=== PATIENT | female | born 1955 | race Two or more races ===

== ENCOUNTER 2025-02-11 10:19 | Inpatient (IN) | payer MEDICARE, OTHER ==
[~2025-02-11] VITALS: Ht 162.6 cm; Wt 77.1 kg
--- NOTE | 2025-02-11 10:39 | ECG ---
[facility] Test Date: 2025-02-11 Test Time: 10:38:05 Pat Name: REMA MOORE Department: ER Room: Gender: F Car Body Mechanic: ALEX : 1955 Requested By: CHANDRA BLANKENSHIP Order Number: [id number] Reading MD: Measurements Intervals [place] Rate: 87 P: 63 NE: 143 QRS: -63 QRSD: 84 T: 67 QT: 361 QTc: 435 Interpretive Statements Sinus rhythm Left anterior fascicular block Consider anterior infarct Please click the below link to view image of tracing.
[2025-02-11] MEDS: ASPirin-EC 325mg tab PO ONE (10:49)
[2025-02-11] MEDS: NITROGLYCERIN 0.4 MG SL TAB SL ONE (10:50)
[2025-02-11 10:52] VITALS: PULSE 88; RESP 20; O2SAT 99
--- NOTE | 2025-02-11 10:53 | ED.PDOC ---
HPI Comments HPI: Poor Historian. 69-year-old female presents to emergency department for evaluation of midsternal chest pain radiating to the left upper extremity. Symptoms are intermittent without any particular alleviating or precipitating factors. Duration of symptoms has been for the last three weeks. Patient is started developing some shortness of breath in the last three days and became concerned decided to come in for evaluation. Patient is otherwise healthy. Past Medical History: Remote hypertension Past Surgical History: , tubal ligation Past social history patient denies any use of drugs or alcohol or tobacco. REVIEW OF SYSTEMS: CONSTITUTIONAL: Denies acute: fever, diaphoresis, chills, generalized weakness. HEAD: Denies acute: headache, photophobia Eyes: Denies acute: Double vision, vision loss, eye pain, eye discharge. EARS: Denies acute: tinnitus, hearing loss, ear discharge, ear pain, THROAT: Denies acute: sore throat, swelling, difficulty swallowing , pain with swallowing, change in voice. NECK: Denies acute: neck pain, neck swelling, stiff neck. HEART: Denies acute : palpitations, LUNGS: Denies acute: wheezing, cough, hemoptysis ABDOMEN: Denies acute: abdominal pain, Nausea, Vomiting, diarrhea, melena , hematemesis, hematochezia SKIN: Denies acute: rash, redness, lesions, itchiness. EXTREMITIES: Denies acute: calf pain, weakness, denies pain in extremity. Denies acute: Low back pain. Neuro: Denies acute: focal neurological deficit, motor or sensory focal neurological deficit, tremors, seizure like activity, confusion, dizziness, change in mental status, loss of bowel or bladder function, cauda equina like symptoms. : Denies acute: dysuria, hematuria, flank pain, increase in urinary frequency. PSYCH: Denies acute: hallucination, suicidal ideation, homicidal ideation. FEMALE: Denies acute: abnormal vaginal bleeding, foul odor, unusual discharge. PHYSICAL EXAM: General: ---bile-----acute distress, awake and alert. Head: normocephalic, atraumatic. Neck: supple, trachea is midline, no swelling. Throat: Normal phonation. Eyes:, no erythema, no purulent discharge, no proptosis, no icterus. Heart: regular rate, regular rhythm, no significant murmur appreciated. Lungs: no apparent respiratory distress, Able to speak in full sentences. No wheezing, no rhonchi, no crackles. No stridors Clear to auscultation bilaterally. Abdomen: non tender to palpation, non distended, soft, no guarding, no rebound, + bowel sounds. Neuro: Awake, Alert, oriented to name, self, situation, follows commands GCS=15. Speech is normal. Skin: no petechia, no purpura, no cyanosis, non-pale, not jaundice. Lower extremities: --no - Pitting edema no deformity, no focal swelling, no calf TTP. Makes eye contact. moves all four extremities. Face: no apparent facial droop. Ambulating in the ED independently. ED COURSE: DISCLAIMER: This medical document was created using an electronic medical record system with voice recognition software and computerized dictation system. Although this document has been carefully reviewed, there might still be some phonetic and typographical errors. Occasional wrong-word or "sound-alike" substitutions may have occurred due to the inherent limitations of voice recognition software. These areas are purely typographical due to imperfections of the software programs and do not reflect any compromise in the patient's medical care. Please read the chart carefully and recognize, using context, where these substitutions have occurred. Chief Complaint: Chest Pain Time Seen by MD: 10:29 Allergies: Coded Allergies: Codeine (Verified Allergy, Mild, 02/11/25) itching Information Source: Patient Was a procedure done? Was a procedure done?: No CP Differential Dx Differential Diagnosis: Other (As far as dyspnea, DDx include ACS, unstable angina, anxiety, PE, pneumothroax, neoplasm, cardiac ischemia, COPD, asthma, CHF, pleural effusion, tobacco abuse, pneumonia, hypoxia, hypercapnia, anemia., infection/sepsis., pulmonary edema. Asthma, Cardiac tamponade, infection.) Differential Diagnosis: Other (Ddx include but not limitied to gastritis, musculoskeletal pain, radiculopathy, atypical chest pain, dissection, aneurysm, ACS, unstable angina, hiatal hernia, GERD, anxiety, costochondritis, PE, pneumothroax, neoplasm, cardiac ischemia, drug abuse, anemia.) X-Ray, Labs, Meds, VS Vital Signs Date Time Temp Pulse Resp B/P (MAP) Pulse Ox O2 Delivery O2 Flow Rate FiO2 02/11/25 12:26 107 18 171/93 (119) 96 02/11/25 12:26 107 171/93 02/11/25 11:42 153/98 02/11/25 11:30 100 02/11/25 10:52 97.8 88 20 147/93 (111) 99 97.8 02/11/25 10:52 88 20 99 Room Air* 0 21 02/11/25 10:50 147/93 02/11/25 10:38 87 02/11/25 10:30 98.6 101 14 161/99 (119) 97 98.6 02/11/25 10:30 98.6 101 14 161/99 (119) 97 98.6 Lab Test 02/11/25 12:43 02/11/25 10:42 02/11/25 10:30 Range/Units Hemoglobin A1c Pending Troponin I High Sensitivity Pending < 3 L </=34 ng/L Thyroid Stimulating Hormone (TSH) Pending White Blood Count 5.5 4.4-10.8 10^3/uL Red Blood Count 5.08 4.0-5.20 10^6/uL Hemoglobin 14.6 12.2-16.2 g/dL Hematocrit 43.0 36.0-46.0 % Mean Corpuscular Volume 84.5 80.0-100.0 fL Mean Corpuscular Hemoglobin 28.8 28.0-32.0 pg Mean Corpuscular Hemoglobin Concent 34.0 32.0-36.0 g/dL Red Cell Distribution Width 14.4 H 11.8-14.3 % Platelet Count 344 140-450 10^3/uL Mean Platelet Volume 6.8 L 6.9-10.8 fL Neutrophils (%) (Auto) 56.6 37.0-80.0 % Lymphocytes (%) (Auto) 33.2 10.0-50.0 % Monocytes (%) (Auto) 7.1 0.0-12.0 % Eosinophils (%) (Auto) 1.8 0.0-7.0 % Basophils (%) (Auto) 1.3 0.0-2.0 % Neutrophils # (Auto) 3.1 1.6-8.6 10 ^3/uL Lymphocytes # (Auto) 1.8 0.4-5.4 10 ^3/uL Monocytes # (Auto) 0.4 0-1.3 10 ^3/uL Eosinophils # (Auto) 0.1 0-0.8 10 ^3/uL Basophils # (Auto) 0.1 0-0.2 10 ^3/uL Nucleated Red Blood Cells 0.1 % D-Dimer, Quantitative 0.32 0.0-0.49 mg/L FEU Sodium Level 140 136-145 mmol/L Potassium Level 3.8 3.5-5.1 mmol/L Chloride Level 108 H 98-107 mmol/L Carbon Dioxide Level 22 20-31 mmol/L Anion Gap 10 5-15 Blood Urea Nitrogen 15 9-23 mg/dL Creatinine 0.84 0.550-1.02 mg/dL Glomerular Filtration Rate Calc 75 >90 mL/min BUN/Creatinine Ratio 17.9 10.0-20.0 Serum Glucose 107 H 74-106 mg/dL Calcium Level 10.2 8.7-10.4 mg/dL Total Bilirubin 0.3 0.2-1.0 mg/dL Aspartate Amino Transferase (AST) 12 L 13-40 U/L Alanine Aminotransferase (ALT) 11 7-40 U/L Alkaline Phosphatase 70 46-116 U/L B-Type Natriuretic Peptide 10.91 0-100 pg/mL Total Protein 7.2 5.7-8.2 g/dL Albumin 4.8 3.2-4.8 g/dL Urine Color Yellow Yellow Urine Clarity Clear Clear Urine pH 5.5 5.0-9.0 Urine Specific [place] 1.031 1.001-1.035 Urine Protein Trace H Negative Urine Ketones Negative Negative Urine Blood Negative Negative /uL Urine Nitrite Negative Negative Urine Bilirubin Negative Negative Urine Urobilinogen Normal Negative mg/dL Urine Leukocyte Esterase 1+ Negative /uL Urine RBC 2 0 - 4 /hpf Urine Microscopic WBC 4 0-5 /HPF Urine Squamous Epithelial Cells Few <5 /hpf Urine Transitional Epithelial Cells Few <2 /hpf Urine Bacteria None seen None Seen /hpf Urine Hyaline Casts Few 0 - 2 /lpf Urine Mucus Few None Seen Urine Glucose Normal Normal mg/dL Current Medications Medications (Trade) Dose Ordered Sig/Jorge Route Start Time Stop Time Status Last Admin Aspirin (Ecotrin Enteric Coated Tablet) 325 mg ONCE ONCE PO 02/11/25 10:30 02/11/25 10:33 DC 02/11/25 10:49 Nitroglycerin (Ntrostat Sublingual) 0.4 mg ONCE ONCE SL 02/11/25 10:30 02/11/25 10:33 DC 02/11/25 10:50 Labetalol HCl (Labetalol HCl) 5 mg ONCE ONCE IV 02/11/25 12:00 02/11/25 12:01 DC 02/11/25 12:26 [place] [id number] Ph: [phone] DIAGNOSTIC IMAGING Diagnostic Imaging Report : [id number] Signed PATIENT: REMA MOORE ACCT: [id number] UNIT: [id number] : 1955 LOC: ER ROOM / BED: / AGE / SEX: 69 / F ADM STATUS: REG ER SERVICE 1030 ORDERING PHYSICIAN: CHANDRA BLANKENSHIP DO PROCEDURE(s): CXRP - CHEST PORTABLE REASON: cp, sob ORDER NUMBER(s): [id number], ACCESSION NUMBER(s): [id number] CHEST RADIOGRAPH Indication: cp, sob Technique: XY CHEST PORTABLE Comparison: None FINDINGS: The cardiac silhouette is unremarkable. The lungs demonstrate no pulmonary airspace consolidation. The pulmonary vasculature is unremarkable. There is no pleural effusion. There is no pneumothorax. Aortic atherosclerotic disease. IMPRESSION: No pulmonary airspace consolidation. ATED BY: JOHAN RODRIGUEZ MD DICTATED DATE/TIME: 02/11/25 1124 SIGNED BY: JOHAN RODRIGUEZ MD SIGNED DATE/TIME: 02/11/25 1124 CC: Time of 1ST Reevaluation: 13:01 Reevaluation 1ST: Improved Patient Education/Counseling: Diagnosis, Treatment Family Education/Counseling: Other Comments MDM: patient presented with the above HPI.----chest pain/dyspnea--workup was initiated. patient was found with the above mentioned diagnosis. the following medications were ordered: please refer to order lists of meds and tests obtained by myself Dr. Blankenship. Patient ED course and VS have been stabilized. Patient has been reassessed in the ED and remained in a stable condition. Pertinent incidental findings were discussed with the patient and/or family. Patient/family voices understanding and is agreeable with plan. Patient has been observed in the ED adequate length of time to insure improvement/stability. Escalation of care considered: Consideration of escalation to observation or admission Patient was given aspirin, nitroglycerin, labetalol for blood pressure control. Patient was ADMITTED to the medicine team for further evaluation and treatment of their presentation. All the reports of any imaging studies that were ordered by myself were reviewed by myself. SEPSIS Sepsis Screen Physician Orders Healthcare Recruiter (02/11/25 ) Chest Portable (02/11/25 10:30) Troponin-I Hs (02/11/25 11:30) Troponin-I Hs (02/11/25 13:30) Electrocardigram (02/11/25 11:30) Electrocardigram (02/11/25 13:30) Saline Lock (02/11/25 12:21) Vital Signs Date Time Temp Pulse Resp B/P (MAP) Pulse Ox O2 Delivery O2 Flow Rate FiO2 02/11/25 12:26 107 18 171/93 (119) 96 02/11/25 12:26 107 171/93 02/11/25 11:42 153/98 02/11/25 11:30 100 02/11/25 10:52 97.8 88 20 147/93 (111) 99 97.8 02/11/25 10:52 88 20 99 Room Air* 0 21 02/11/25 10:50 147/93 02/11/25 10:38 87 02/11/25 10:30 98.6 101 14 161/99 (119) 97 98.6 02/11/25 10:30 98.6 101 14 161/99 (119) 97 98.6 Laboratory Tests Test 02/11/25 10:42 White Blood Count 5.5 10^3/uL (4.4-10.8) Medications Medications Dose Ordered Sig/Jorge Route Start Time Stop Time Status Last Admin Dose Admin Aspirin 325 mg ONCE ONCE PO 02/11/25 10:30 02/11/25 10:33 DC 02/11/25 10:49 Labetalol HCl 5 mg ONCE ONCE IV 02/11/25 12:00 02/11/25 12:01 DC 02/11/25 12:26 Nitroglycerin 0.4 mg ONCE ONCE SL 02/11/25 10:30 02/11/25 10:33 DC 02/11/25 10:50 Departure 1 Departure Time of Disposition: 10:53 Impression: Primary Impression: Chest pain Qualified Codes: R07.89 - Other chest pain Additional Impressions: Dyspnea Hypertension Disposition: 09 ADMITTED INPATIENT Admit to: Tele Condition: Guarded Discharged With: Self Critical Care Note Critical Care Time?: No Heart Score Heart Score: Heart Score Response (Comments) Value History Moderate Suspicious 1 EKG Normal 0 Age >65 2 Risk Factors 1 or 2 risk factors 1 Troponin Normal limit 0 Total 4 CHANDRA BLANKENSHIP DO Feb 11, 2025 10:53
[2025-02-11 11:02] LABS: Hematocrit 43.0 % (36.0-46.0); Hemoglobin 14.6 g/dL (12.2-16.2); Mean Corpuscular Hemoglobin 28.8 pg (28.0-32.0); Mean Corpuscular Volume 84.5 fL (80.0-100.0); Nucleated Red Blood Cells % 0.1 %
[2025-02-11 11:20] LABS: Alanine Aminotransferase 11 U/L (7-40); Alkaline Phosphatase 70 U/L (46-116); Anion Gap 10 (5-15); BUN/Creatinine Ratio 17.9 (10.0-20.0); Bilirubin, Total 0.3 mg/dL (0.2-1.0); Blood Urea Nitrogen 15 mg/dL (9-23); Calcium 10.2 mg/dL (8.7-10.4); Carbon Dioxide 22 mmol/L (20-31); Potassium 3.8 mmol/L (3.5-5.1); Sodium 140 mmol/L (136-145); Total Protein 7.2 g/dL (5.7-8.2)
[2025-02-11 11:24] LABS: Albumin 4.8 g/dL (3.2-4.8); Chloride 108 mmol/L (98-107); Glucose 107 mg/dL (74-106)
--- NOTE | 2025-02-11 11:25 | DVH ---
CHEST RADIOGRAPH Indication: cp, sob Technique: XY CHEST PORTABLE Comparison: None FINDINGS: The cardiac silhouette is unremarkable. The lungs demonstrate no pulmonary airspace consolidation. Th e pulmonary vasculature is unremarkable. There is no pleural effusion. There is no pneumothorax. Aor tic atherosclerotic disease. IMPRESSION: No pulmonary airspace consolidation.
[2025-02-11 12:08] LABS: Urine Protein, UAD TRACE (Negative)
[2025-02-11] MEDS: LABETALOL HCL 20 MG/4 ML VL IV ONE (12:26)
[2025-02-11] MEDS ORDERED: ONDANSETRON HCL 4 MG/2 ML VIAL IV PRN (12:45)
[2025-02-11] MEDS ORDERED: MORPHINE SULFATE INJ 2 MG/ml SYRG IV PRN ×2 (12:45→14:00)
[2025-02-11] MEDS ORDERED: NITROGLYCERIN 0.4 MG SL TAB SL PRN ×2 (12:45)
--- NOTE | 2025-02-11 13:00 | DVHHP2 ---
History of Present Illness Reason for Visit: Chest pain radiating to the left arm and back History of Present Illness Gala Valentino is a 69-year-old female with no past medical history who presents to the ED with shortness of breath and chest pain that is radiating to the left arm and back for the last 2-3 weeks. Patient reports that her current pain is 10/10 tight and constant. Patient reports that there are no triggering or alleviating factors. Patient denies any recent trauma or injury, recent sick contacts, recent travels, recent ingestion of spoiled food, abdominal pain, nausea, vomiting, diarrhea, lightheadedness, weakness, dizziness, or urinary symptoms. Past Surgical History: None Family History: Cancer, Other (Mom with glioblastoma and dad had TN. ) Smoke: No ALCOHOL: none Drugs: None Lives: with Family Domestic Violence: Neg Review of Systems Respiratory: Shortness of breath Cardiovascular: Chest Pain Musculoskeletal: arm pain, back pain Allergies: Coded Allergies: Codeine (Verified Allergy, Mild, 02/11/25) itching Medications Current Medications Medications Dose Ordered Sig/Jorge Route Start Time Stop Time Status Last Admin Dose Admin Ceftriaxone Sodium 50 ml @ 100 mls/hr DAILY@09 IV 02/11/25 12:45 UNV Aspirin 81 mg DAILY PO 02/12/25 10:00 UNV Atorvastatin Calcium 40 mg HS PO 02/11/25 22:00 UNV Exam Vital Signs Vital Signs Date Time Temp Pulse Resp B/P (MAP) Pulse Ox O2 Delivery O2 Flow Rate FiO2 02/11/25 12:26 107 18 171/93 (119) 96 02/11/25 10:52 97.8 97.8 02/11/25 10:52 Room Air* 0 21 General Appearance: Alert, Oriented X3, Cooperative, No acute distress HEENT: Atraumatic, PERRLA, EOMI, Mucous membr. moist/pink Respiratory: Clear to auscultation, Normal air movement Cardiovascular: Normal S1, Normal S2 Abdominal: Normal bowel sounds, Soft Extremities: No clubbing, No cyanosis, No edema, Normal pulses Skin: No significant lesion Neuro: Normal gait, Normal speech, Strength at 5/5 X4 ext, Normal tone, Sensation intact Psych/Mental Status: Mental status NL, Mood NL Labs/Xrays Labs Test 02/11/25 10:42 02/11/25 10:30 Range/Units White Blood Count 5.5 4.4-10.8 10^3/uL Red Blood Count 5.08 4.0-5.20 10^6/uL Hemoglobin 14.6 12.2-16.2 g/dL Hematocrit 43.0 36.0-46.0 % Mean Corpuscular Volume 84.5 80.0-100.0 fL Mean Corpuscular Hemoglobin 28.8 28.0-32.0 pg Mean Corpuscular Hemoglobin Concent 34.0 32.0-36.0 g/dL Red Cell Distribution Width 14.4 H 11.8-14.3 % Platelet Count 344 140-450 10^3/uL Mean Platelet Volume 6.8 L 6.9-10.8 fL Neutrophils (%) (Auto) 56.6 37.0-80.0 % Lymphocytes (%) (Auto) 33.2 10.0-50.0 % Monocytes (%) (Auto) 7.1 0.0-12.0 % Eosinophils (%) (Auto) 1.8 0.0-7.0 % Basophils (%) (Auto) 1.3 0.0-2.0 % Neutrophils # (Auto) 3.1 1.6-8.6 10 ^3/uL Lymphocytes # (Auto) 1.8 0.4-5.4 10 ^3/uL Monocytes # (Auto) 0.4 0-1.3 10 ^3/uL Eosinophils # (Auto) 0.1 0-0.8 10 ^3/uL Basophils # (Auto) 0.1 0-0.2 10 ^3/uL Nucleated Red Blood Cells 0.1 % D-Dimer, Quantitative 0.32 0.0-0.49 mg/L FEU Sodium Level 140 136-145 mmol/L Potassium Level 3.8 3.5-5.1 mmol/L Chloride Level 108 H 98-107 mmol/L Carbon Dioxide Level 22 20-31 mmol/L Anion Gap 10 5-15 Blood Urea Nitrogen 15 9-23 mg/dL Creatinine 0.84 0.550-1.02 mg/dL Glomerular Filtration Rate Calc 75 >90 mL/min BUN/Creatinine Ratio 17.9 10.0-20.0 Serum Glucose 107 H 74-106 mg/dL Calcium Level 10.2 8.7-10.4 mg/dL Total Bilirubin 0.3 0.2-1.0 mg/dL Aspartate Amino Transferase (AST) 12 L 13-40 U/L Alanine Aminotransferase (ALT) 11 7-40 U/L Alkaline Phosphatase 70 46-116 U/L Troponin I High Sensitivity < 3 L </=34 ng/L B-Type Natriuretic Peptide 10.91 0-100 pg/mL Total Protein 7.2 5.7-8.2 g/dL Albumin 4.8 3.2-4.8 g/dL Urine Color Yellow Yellow Urine Clarity Clear Clear Urine pH 5.5 5.0-9.0 Urine Specific [place] 1.031 1.001-1.035 Urine Protein Trace H Negative Urine Ketones Negative Negative Urine Blood Negative Negative /uL Urine Nitrite Negative Negative Urine Bilirubin Negative Negative Urine Urobilinogen Normal Negative mg/dL Urine Leukocyte Esterase 1+ Negative /uL Urine RBC 2 0 - 4 /hpf Urine Microscopic WBC 4 0-5 /HPF Urine Squamous Epithelial Cells Few <5 /hpf Urine Transitional Epithelial Cells Few <2 /hpf Urine Bacteria None seen None Seen /hpf Urine Hyaline Casts Few 0 - 2 /lpf Urine Mucus Few None Seen Urine Glucose Normal Normal mg/dL CHEST RADIOGRAPH Indication: cp, sob Technique: XY CHEST PORTABLE Comparison: None FINDINGS: The cardiac silhouette is unremarkable. The lungs demonstrate no pulmonary airspace consolidation. The pulmonary vasculature is unremarkable. There is no pleural effusion. There is no pneumothorax. Aortic atherosclerotic disease. IMPRESSION: No pulmonary airspace consolidation. SEPSIS Sepsis Screen Date sepsis recognized/suspect: Feb 11, 2025 Time Sepsis recognized/suspect: 1030 Recent Procedure: No On Antibiotic Therapy: No Respiratory Rate >20: No Heart Rate >90: Yes Temp<36 C (96.8 F) or >38.3 C: No SBP <90 or MAP <65 mmHG: No New Acute Mental Status Change: No Is the patient on CPAP, BIPAP,: No Physician Orders Installation Technician (02/11/25 ) Chest Portable (02/11/25 10:30) Troponin-I Hs (02/11/25 11:30) Troponin-I Hs (02/11/25 13:30) Electrocardigram (02/11/25 11:30) Electrocardigram (02/11/25 13:30) Saline Lock (02/11/25 12:21) Ceftriaxone 1gm/50ml D5w (Rocephin) (02/11/25 12:45) Admit (02/11/25 12:43) Code Status (02/11/25 12:43) Vital Signs .PER UNIT PROTOCOL (02/11/25 12:43) Installation Technician (02/11/25 12:43) Cardiac Diet-2gna,Lofat,Lochol (02/11/25 Lunch) Aspirin Tablet (02/12/25 10:00) Atorvastatin (Lipitor) (02/11/25 22:00) Complete Blood Count (02/12/25 04:00) Basic Metabolic Panel (02/12/25 04:00) Magnesium (02/12/25 04:00) Lipid Panel (02/12/25 04:00) Echo 2d Mode Cardiac Dop (02/11/25 12:43) Nitroglycerin Sublingual (Ntrostat Subli (02/11/25 12:45) Ondansetron Hcl (Zofran) (02/11/25 12:45) Electrocardigram (02/12/25 04:00) Troponin-I Hs (02/11/25 12:43) Cardiac Rehabilitation - Outpa (02/11/25 ) Nitroglycerin Sublingual (Ntrostat Subli (02/11/25 12:45) Morphine Sulfate Injection (02/11/25 12:45) Stat Ekg For Chest Pain (02/11/25 12:43) Notify Of Changes From Base (02/11/25 12:43) Re Dye Hand For 24 Hours (02/11/25 12:43) Emergency Dysrhythmia Protocol (02/11/25 12:43) Rhythm Strips Once Every Shift (02/11/25 12:43) Oxygen By Nasal Cannula (02/11/25 12:43) Thyroid Stimulating Hormone (02/11/25 12:43) Hemoglobin A1c (02/11/25 12:43) Free T4 (Free Thyroxine) (02/11/25 12:43) Drug Screen (02/11/25 12:43) Vital Signs Date Time Temp Pulse Resp B/P (MAP) Pulse Ox O2 Delivery O2 Flow Rate FiO2 02/11/25 12:26 107 18 171/93 (119) 96 02/11/25 12:26 107 171/93 02/11/25 11:42 153/98 02/11/25 11:30 100 02/11/25 10:52 97.8 88 20 147/93 (111) 99 97.8 02/11/25 10:52 88 20 99 Room Air* 0 21 02/11/25 10:50 147/93 02/11/25 10:38 87 02/11/25 10:30 98.6 101 14 161/99 (119) 97 98.6 02/11/25 10:30 98.6 101 14 161/99 (119) 97 98.6 Laboratory Tests Test 02/11/25 10:42 White Blood Count 5.5 10^3/uL (4.4-10.8) Medications Medications Dose Ordered Sig/Jorge Route Start Time Stop Time Status Last Admin Dose Admin Aspirin 325 mg ONCE ONCE PO 02/11/25 10:30 02/11/25 10:33 DC 02/11/25 10:49 325 MG Labetalol HCl 5 mg ONCE ONCE IV 02/11/25 12:00 02/11/25 12:01 DC 02/11/25 12:26 5 MG Nitroglycerin 0.4 mg ONCE ONCE SL 02/11/25 10:30 02/11/25 10:33 DC 02/11/25 10:50 0.4 MG Assessment/Plan Assessment/Plan Assessment Chest pain rule out ACS UTI Plan Admit to tele IV antibiotics-ceftriaxone Nitroglycerin given ED Aspirin given ED EKG Troponin noted D-dimer noted Chest x-ray noted BNP Aspirin + statin Hemoglobin A1c TSH Free T4 Echo ordered Lipid panel UA UDS Diet Per patient does not take any home medications aside from omeprazole DVT prophylaxis-not indicated patient ambulating PUD prophylaxis-H2 blockers Discussed plan of care with patient and nurse [id number] Preventive counseling healthy eating habits, physical activity, and regular checkups Plan discussed with: Patient My Orders Orders - GRADY LIM [employer] Procedure Category Date Status Time Ceftriaxone 1gm/50ml PHA 02/11/25 Logged D5w (Rocephin) 12:45 Admit ADMIT 02/11/25 Transmitted 12:43 Code Status CODE 02/11/25 Transmitted 12:43 Vital Signs THERESA 02/11/25 In Process 12:43 Installation Technician THERESA 02/11/25 In Process 12:43 Cardiac DIET 02/11/25 Transmitted Diet-2gna,Lofat,Lochol Lunch Aspirin Tablet PHA 02/12/25 Logged 10:00 Atorvastatin (Lipitor) PHA 02/11/25 Logged 22:00 Complete Blood Count LAB 02/12/25 Verified 04:00 Basic Metabolic Panel LAB 02/12/25 Verified 04:00 Magnesium LAB 02/12/25 Verified 04:00 Lipid Panel LAB 02/12/25 Verified 04:00 Echo 2d Mode Cardiac US 02/11/25 Logged DOP 12:43 Nitroglycerin PHA 02/11/25 Transmitted Sublingual (Ntrostat 12:45 Ondansetron Hcl PHA 02/11/25 Transmitted (Zofran) 12:45 Electrocardigram EKG 02/12/25 Logged 04:00 Troponin-I Hs LAB 02/11/25 Logged 12:43 Cardiac THERESA 02/11/25 In Process Rehabilitation - Outpa Nitroglycerin [facility] 02/11/25 Transmitted Sublingual (Ntrostat 12:45 Morphine Sulfate PHA 02/11/25 Transmitted Injection 12:45 Stat Ekg For Chest THERESA 02/11/25 In Process Pain 12:43 Notify Of Changes [facility] 02/11/25 In Process From Base 12:43 Re Dye Hand For [facility] 02/11/25 In Process 24 Hours 12:43 Emergency Dysrhythmia [facility] 02/11/25 In Process Protocol 12:43 Rhythm Strips Once [facility] 02/11/25 In Process Every Shift 12:43 Oxygen By Nasal RT 02/11/25 Transmitted Cannula 12:43 Thyroid Stimulating LAB 02/11/25 Logged Hormone 12:43 Hemoglobin A1c LAB 02/11/25 Logged 12:43 Free T4 (Free LAB 02/11/25 Logged Thyroxine) 12:43 Drug Screen LAB 02/11/25 Logged 12:43 Date of Service: Feb 11, 2025 Billing Provider: GRADY LIM Common Visit Codes: [id number] INP/OBS CARE (HIGH) Secondary Visit Codes: [id number] COUNSELING IND GRADY LIM Feb 11, 2025 13:00
[2025-02-11] MEDS: FAMOTIDINE (10MG/ML) 2ML VL IV SCH (14:18)
[2025-02-11] MEDS: cefTRIAXone 1GM/50ML D5W 50 ML IV SCH (14:19)
[2025-02-11 16:17] LABS: Cannabinoid Screen, Urine Pos (NEGATIVE)
[2025-02-11 16:18] LABS: Amphetamine Screen, Urine Neg (NEGATIVE); Barbiturate Scree,Urine Neg (NEGATIVE); Benzodiazephine Screen, Urine Neg (NEGATIVE); Cocaine Screen, Urine Neg (NEGATIVE); Opiate Scree,Urine Neg (NEGATIVE); Phencyclidine Screen, Urine Neg (NEGATIVE)
[2025-02-11 17:00] VITALS: BP 140/73; PULSE 80; RESP 15; TEMP 98.3; O2SAT 93
[2025-02-11 17:02] VITALS: PULSE 77; RESP 17; O2SAT 99
[2025-02-11] MEDS: ACETAMINOPHEN 325 MG TAB PO PRN (18:17)
[2025-02-11 21:05] VITALS: BP 152/77; PULSE 78; RESP 16; TEMP 98.6; O2SAT 93
[2025-02-11] MEDS: ATORVASTATIN 20 MG TAB PO SCH (21:56)
[2025-02-11 22:50] VITALS: BP 161/98; PULSE 77; RESP 17; TEMP 97.8; O2SAT 99
[2025-02-12] VITALS (8 sets, daily range): BP systolic 124–149; BP diastolic 73–87; PULSE 72–89; RESP 17–18; TEMP 97.2–97.9; O2SAT 93–98
[2025-02-12 07:52] LABS: Hematocrit 38.9 % (36.0-46.0); Hemoglobin 13.4 g/dL (12.2-16.2); Mean Corpuscular Hemoglobin 29.0 pg (28.0-32.0); Mean Corpuscular Volume 84.3 fL (80.0-100.0); Nucleated Red Blood Cells % 0.1 %
[2025-02-12 08:10] LABS: Anion Gap 11 (5-15); Carbon Dioxide 23 mmol/L (20-31); Potassium 3.6 mmol/L (3.5-5.1); Sodium 141 mmol/L (136-145)
[2025-02-12 08:11] LABS: Calcium 9.7 mg/dL (8.7-10.4)
[2025-02-12 08:16] LABS: BUN/Creatinine Ratio 21.8 (10.0-20.0); Blood Urea Nitrogen 17 mg/dL (9-23); Chloride 107 mmol/L (98-107); Glucose 92 mg/dL (74-106); Triglycerides 217 mg/dL (< 150)
[2025-02-12 08:18] LABS: Cholesterol 202 mg/dL (< 200); HDL Cholesterol 48 mg/dL (40-59)
[2025-02-12 08:45] LABS: Magnesium 1.7 mg/dL (1.6-2.6)
--- NOTE | 2025-02-12 14:55 | DVHPNRES ---
Progress Note Date Seen: Feb 12, 2025 Resident Creating Document: BETHANY GODOY RESIDENT Medical Necessity Reason Pt with a Central, PICC or Fol: No Subjective Review of Systems 69-year-old female with a history of hypertension and arthritis presenting with chest pain, numbness in her left arm and fingers, and elevated blood pressure for the past 3 weeks. The patient reports that she first noticed her chest feeling heavy with pain about 3 weeks ago, accompanied by numbness in her left arm and lateral 3 fingers. 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 However, the symptoms persisted and worsened over time. The chest discomfort progressed from pressure to pain, affecting her entire left arm. Concurrently, she observed that her sytolic blood pressure had increased, with readings of 171, 173, and 163. The patient also experienced headaches and occasional dizziness when bending over, though she denies any vision changes. Pt admits to discontinuing her prescribed lisinopril some time ago when her blood pressure normalized. Denies smoking, alcohol use, and drug use Objective vital signs Vital Sign Date Time Temp Pulse Resp B/P (MAP) Pulse Ox O2 Delivery O2 Flow Rate FiO2 02/12/25 13:00 97.9 80 18 134/85 (101) 93 97.9 02/12/25 07:30 Room Air* 0 21 Total Intake and Output 02/11/25 02/11/25 02/12/25 15:00 23:00 07:00 Intake Total 500 ml Balance 500 ml medications Current Medications Medications Dose Ordered Sig/Jorge Route Start Time Stop Time Status Last Admin Dose Admin Ceftriaxone Sodium 50 ml @ 100 mls/hr DAILY@09 IV 02/11/25 12:45 02/12/25 09:06 100 MLS/HR Aspirin 81 mg DAILY PO 02/12/25 10:00 02/12/25 09:07 81 MG Atorvastatin Calcium 40 mg HS PO 02/11/25 22:00 02/11/25 21:56 40 MG Nitroglycerin 0.4 mg Q5MINP PRN SL 02/11/25 12:45 Cancel Ondansetron HCl 4 mg Q4HP PRN IV 02/11/25 12:45 Nitroglycerin 0.4 mg Q5MINP PRN SL 02/11/25 12:45 Famotidine 20 mg DAILY IV 02/11/25 13:00 02/12/25 09:06 20 MG Morphine Sulfate 2 mg Q30M PRN IV 02/11/25 14:00 Acetaminophen 650 mg Q4HP PRN PO 02/11/25 17:30 02/12/25 09:27 650 MG Gabapentin 300 mg TID PO 02/12/25 22:00 Examination GENERAL: Not in acute distress. HEENT: EOMI, Moist mucous membranes. No scleral icterus. No cervical lymphadenopathy. LUNGS: Clear to auscultation bilaterally. No accessory muscle use. CARDIOVASCULAR: Regular rate and rhythm. No murmur. No JVD. ABDOMEN: Soft, nontender and nondistended. No palpable masses. EXTREMITIES: No edema. Nontender. SKIN: No rashes or lesions. Warm. NEUROLOGIC: Alert and oriented X3 laboratory and microbiology Laboratory Tests 02/12/25 05:17 Test 02/12/25 05:17 Range/Units Serum Glucose 92 74-106 mg/dL Problem List/Assessment/Plan Problem List/Assessment/Plan # Chest pain likely non cardiac # Rule out ACS # Left arm pain most likely due to nerve itrapment - EKG and trops normal - echocardiogram - Neck CT without contrast - Gabapentin 300 mg TID # Hypertension - Anti hypertensive - Educate patient on importance of medication adherence - Recommend regular blood pressure monitoring # Hypercholesterolemia - Atorvastatin 40 mg daily - Recommend dietary modifications - Encourage regular exercise as tolerated # Possible Urinary tract infection - UA shows, Leuko est +, U Bacteria + - Rocephin 1Gm daily # Arthritis - Refer to primary care for comprehensive arthritis management Goal of Care discussed with the pt for 27 minutes: Full Code Plan discussed with Dr. Mckay Plan discussed with: Patient My Orders My Orders Orders - BETHANY GODOY RESIDENT Procedure Category Date Status Time Gabapentin Capsule PHA 02/12/25 In Process (Neurontin Capsule) 22:[address] 02/12/25 Logged 14:28 Basic Metabolic Panel LAB 02/13/25 Verified 04:00 Complete Blood Count LAB 02/13/25 Verified 04:00 Date of Service: Feb 12, 2025 Billing Provider: JOEY MCKAY MD Common Visit Codes: [id number] INP/OBS CARE(HIGH) BETHANY GODOY Feb 12, 2025 14:55 JOEY MCKAY MD Feb 13, 2025 16:11
--- NOTE | 2025-02-12 16:07 | DVH ---
CT cervical INDICATION: CERVICAL NERVE INTRAPMENT Technique: Serial axial images were performed through spine and then reformatted in sagital and santiago nal planes. FINDINGS: Is straightening of the normal cervical lordotic curvature. Cervical vertebral bodies are n ormal in height There is disc space narrowing at C4-C5, C5-C6 and C6-C7 Atlanto odontoid articulation normal On transaxial images at C3-C4 narrowing of the left neural foramen by osteophytes. Lung apices are clear. No abnormal paravertebral soft tissue masses. IMPRESSION: 1. Degenerative changes in the lower cervical spine Computed Tomographic Radiation Dosimetry Report: Total CTDI vol = 23.5 mGy Total DLP = 481 mGy-cm All CT scans at this medical facility are performed using dose modulation techniques as appropriate t o a performed exam including the following: Automated exposure control was utilized; adjustment of the MA and/or KvP according to patient size; a nd use of iterative reconstruction technique.
[2025-02-12] MEDS: GABAPENTIN 300 MG CAP PO SCH (21:09)
[2025-02-13 01:00] VITALS: BP 129/88; PULSE 74; RESP 18; TEMP 98; O2SAT 18; O2SAT 95
--- NOTE | 2025-02-13 03:51 | DVHSR ---
APPROVED REPORT EXAM: Two-dimensional and M-mode echocardiogram with Doppler and color Doppler. Blood Pressure: 127/75 mmHg INDICATION Chest Pain RISK FACTORS Height: 5'4, Weight: 163 DIMENSIONS LVDd2.9 (3.8-5.7cm)LA (2D)3.0 (1.9-4.0cm)Aortic Root3.1 (2.0-3.7cm) LVDs2.3 (2.5-4.0cm)LA (MM) (1.9-4.0cm)Aortic Cusp Exc2.0 (1.5-2.0cm) EF (%) 50.0 (55-70%)Rt. Atrium3.1 (1.9-4.0cm)Asc. Aorta cm IVSd1.4 (0.7-1.1cm)RV (D)2.7 (1.8-2.4cm) PWd1.0 (0.7-1.1cm) Mitral Valve MitralMitral Stenosis E wave0.54m/sMV Mean GR.mmHg A wave1.06m/sMV Peak GR.mmHg E/A ratio0.52D MVAcm2 DECEL [id number] 1/2 Timems Aortic Valve Aortic ValveAortic Stenosis V11.16m/Susan Mean GR.4mmHg V21.16m/Susan Peak GR.5mmHg LVOT Diameter1.6 (1.8-2.4cm)Doppler AVA2.01cm2 Pulmonic Valve V20.76m/s Tricuspid Valve TR Velocity2.13m/s [id number] Conclusion LV EF IS 55% AND IS NORMAL DYSKINESIS OF IVS SLIGHTLY DILATED RV REPRESENT RV STRAIN PATTERN NORMAL VALVES NO EFFUSION
[2025-02-13 05:00] VITALS: BP 123/81; PULSE 78; RESP 18; TEMP 97.5
[2025-02-13 06:21] LABS: Hematocrit 41.8 % (36.0-46.0); Hemoglobin 14.1 g/dL (12.2-16.2); Mean Corpuscular Hemoglobin 28.6 pg (28.0-32.0); Mean Corpuscular Volume 84.8 fL (80.0-100.0); Nucleated Red Blood Cells % 0.1 %
[2025-02-13 06:30] LABS: Chloride 107 mmol/L (98-107); Potassium 4.0 mmol/L (3.5-5.1); Sodium 141 mmol/L (136-145)
[2025-02-13 06:31] LABS: Anion Gap 10 (5-15); Calcium 10.4 mg/dL (8.7-10.4); Carbon Dioxide 24 mmol/L (20-31)
[2025-02-13 06:36] LABS: BUN/Creatinine Ratio 19.5 (10.0-20.0); Blood Urea Nitrogen 16 mg/dL (9-23); Glucose 95 mg/dL (74-106)
[2025-02-13 08:00] VITALS: PULSE 73; PULSE 81; RESP 18; O2SAT 96
[2025-02-13 09:00] VITALS: BP 132/83; PULSE 81; RESP 17; TEMP 97.9; O2SAT 95
[2025-02-13] MEDS ORDERED: FAMO20TA10 PO (13:03)
[2025-02-13] MEDS ORDERED: CEPH250C PO (13:03)
[2025-02-13] MEDS ORDERED: ATOR40TA52 PO (13:03)
[2025-02-13] MEDS ORDERED: GABA-1250 PO (13:03)
[2025-02-13] MEDS ORDERED: LISI10TA34 PO (13:03)
--- NOTE | 2025-02-13 15:18 | DVHDSRES ---
Discharge Summary Date of Admission Resident Creating Document: CHINEDU MURILLO RESIDENT Feb 11, 2025 at 12:43 Date of Discharge: Feb 13, 2025 Admitting Diagnosis Acute chest pain rule out ACS Wounds: No wound was present. Labs/Diagnostic Data: Laboratory Results Test 02/13/25 04:29 02/12/25 05:17 02/11/25 14:55 02/11/25 12:43 White Blood Count 5.7 10^3/uL (4.4-10.8) Red Blood Count 4.93 10^6/uL (4.0-5.20) Hemoglobin 14.1 g/dL (12.2-16.2) Hematocrit 41.8 % (36.0-46.0) Mean Corpuscular Volume 84.8 fL (80.0-100.0) Mean Corpuscular Hemoglobin 28.6 pg (28.0-32.0) Mean Corpuscular Hemoglobin Concent 33.7 g/dL (32.0-36.0) Red Cell Distribution Width 14.5 % (11.8-14.3) Platelet Count 337 10^3/uL (140-450) Mean Platelet Volume 7.1 fL (6.9-10.8) Neutrophils (%) (Auto) 51.6 % (37.0-80.0) Lymphocytes (%) (Auto) 35.3 % (10.0-50.0) Monocytes (%) (Auto) 8.7 % (0.0-12.0) Eosinophils (%) (Auto) 3.3 % (0.0-7.0) Basophils (%) (Auto) 1.1 % (0.0-2.0) Neutrophils # (Auto) 2.9 10 ^3/uL (1.6-8.6) Lymphocytes # (Auto) 2.0 10 ^3/uL (0.4-5.4) Monocytes # (Auto) 0.5 10 ^3/uL (0-1.3) Eosinophils # (Auto) 0.2 10 ^3/uL (0-0.8) Basophils # (Auto) 0.1 10 ^3/uL (0-0.2) Nucleated Red Blood Cells 0.1 % Sodium Level 141 mmol/L (136-145) Potassium Level 4.0 mmol/L (3.5-5.1) Chloride Level 107 mmol/L (98-107) Carbon Dioxide Level 24 mmol/L (20-31) Anion Gap 10 (5-15) Blood Urea Nitrogen 16 mg/dL (9-23) Creatinine 0.82 mg/dL (0.550-1.02) Glomerular Filtration Rate Calc 77 mL/min (>90) BUN/Creatinine Ratio 19.5 (10.0-20.0) Serum Glucose 95 mg/dL (74-106) Calcium Level 10.4 mg/dL (8.7-10.4) Magnesium Level 1.7 mg/dL (1.6-2.6) Triglycerides Level 217 mg/dL (< 150) Cholesterol Level 202 mg/dL (< 200) LDL Cholesterol 123 mg/dL (< 100) HDL Cholesterol 48 mg/dL (40-59) Troponin I High Sensitivity < 3 ng/L (</=34) Hemoglobin A1c 5.7 % A1C (<5.7) Thyroid Stimulating Hormone (TSH) 3.89 uIU/mL (0.55-4.78) Free Thyroxine (T4) Calculated 0.89 ng/dL (0.89-1.76) Test 02/11/25 10:42 02/11/25 10:30 D-Dimer, Quantitative 0.32 mg/L FEU (0.0-0.49) Total Bilirubin 0.3 mg/dL (0.2-1.0) Aspartate Amino Transferase (AST) 12 U/L (13-40) Alanine Aminotransferase (ALT) 11 U/L (7-40) Alkaline Phosphatase 70 U/L (46-116) B-Type Natriuretic Peptide 10.91 pg/mL (0-100) Total Protein 7.2 g/dL (5.7-8.2) Albumin 4.8 g/dL (3.2-4.8) Urine Color Yellow (Yellow) Urine Clarity Clear (Clear) Urine pH 5.5 (5.0-9.0) Urine Specific [place] 1.031 (1.001-1.035) Urine Protein Trace (Negative) Urine Ketones Negative (Negative) Urine Blood Negative /uL (Negative) Urine Nitrite Negative (Negative) Urine Bilirubin Negative (Negative) Urine Urobilinogen Normal mg/dL (Negative) Urine Leukocyte Esterase 1+ /uL (Negative) Urine RBC 2 /hpf (0 - 4) Urine Microscopic WBC 4 /HPF (0-5) Urine Squamous Epithelial Cells Few /hpf (<5) Urine Transitional Epithelial Cells Few /hpf (<2) Urine Bacteria None seen /hpf (None Seen) Urine Hyaline Casts Few /lpf (0 - 2) Urine Mucus Few (None Seen) Urine Glucose Normal mg/dL (Normal) Urine Opiates Screen Neg (NEGATIVE) Urine Fentanyl Screen Neg (NEGATIVE) Urine Barbiturates Screen Neg (NEGATIVE) Urine Phencyclidine Screen Neg (NEGATIVE) Urine Amphetamines Screen Neg (NEGATIVE) Urine Benzodiazepines Screen Neg (NEGATIVE) Urine Cocaine Screen Neg (NEGATIVE) Urine Cannabinoids Screen Pos (NEGATIVE) Other Laboratory Tests 02/13/25 04:29 Brief Hx & Hospital Course: 69-year-old female with a history of hypertension and arthritis presenting with chest pain, numbness in her left arm and fingers, and elevated blood pressure for the past 3 weeks. The patient reports that she first noticed her chest feeling heavy with pain about 3 weeks ago, accompanied by numbness in her left arm and lateral 3 fingers. 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 However, the symptoms persisted and worsened over time. The chest discomfort progressed from pressure to pain, affecting her entire left arm. Concurrently, she observed that her sytolic blood pressure had increased, with readings of 171, 173, and 163. The patient also experienced headaches and occasional dizziness when bending over, though she denies any vision changes. Pt admits to discontinuing her prescribed lisinopril some time ago when her blood pressure normalized. Hospital course: Initial EKG revealed sinus rhythm, nonspecific ST-T changes and troponins were unremarkable. Echo showed EF 55%. CT cervical spine without contrast demonstrated degenerative changes in the lower cervical spine and C3-C4 narrowing of the left neural foramen by osteophytes. Patient was explained regarding the finding of the CT cervical spine which could explained the tingling and numbness of the bilateral upper extremities especially on the left side. Lipid profile showed dyslipidemia and advised the patient to continue atorvastatin 40 mg p.o. at hs,-diet, lifestyle modification and physical exercise. U/A was consistent with UTI and patient was treated with IV ceftriaxone 1 g daily. Discharge plan was discussed with the patient and all questions were answered. Patient is being discharged to home with lisinopril 10 mg p.o. daily, atorvastatin 40 mg p.o. at hs, Keflex 250 mg q.6 hours for 5 days gabapentin 300 mg t.i.d. patient was advised to follow up with [place] clinic in 1 week. Physical examination: General Appearance: Alert, Oriented X3, Cooperative, No acute distress HEENT: Atraumatic, PERRLA, EOMI, Mucous membrane moist/pink Respiratory: Clear to auscultation, Normal air movement Cardiovascular: Regular rate, Normal S1, Normal S2, No murmurs, no chest wall tenderness Abdominal: Normal bowel sounds, Soft, No tenderness, No hepatospenomegaly, No masses Extremities: No clubbing, No cyanosis, No edema, Normal pulses, No tenderness/swelling Skin: No rashes, No breakdown, No significant lesion Neuro: Normal speech, Strength at 5/5 X4 ext, Normal tone, Sensation intact, Cranial nerves 3-12 NL, Reflexes 2+ Psych/Mental Status: Mental status NL, Mood NL Consults/Reason for consult No consultation was done Operations or Procedures CT cervical INDICATION: CERVICAL NERVE INTRAPMENT Technique: Serial axial images were performed through spine and then reformatted in sagital and coronal planes. FINDINGS: Is straightening of the normal cervical lordotic curvature. Cervical vertebral bodies are normal in height There is disc space narrowing at C4-C5, C5-C6 and C6-C7 Atlanto odontoid articulation normal On transaxial images at C3-C4 narrowing of the left neural foramen by osteophytes. Lung apices are clear. No abnormal paravertebral soft tissue masses. IMPRESSION: 1. Degenerative changes in the lower cervical spine EXAM: Two-dimensional and M-mode echocardiogram with Doppler and color Doppler. DIMENSIONS LVDd 2.9 (3.8-5.7cm) LA (2D) 3.0 (1.9-4.0cm) Aortic Root 3.1 (2.0- 3.7cm) LVDs 2.3 (2.5-4.0cm) LA (MM) (1.9-4.0cm) Aortic Cusp Exc 2.0 (1.5- 2.0cm) EF (%) 50.0 (55-70%) Rt. Atrium 3.1 (1.9-4.0cm) Asc. Aorta cm IVSd 1.4 (0.7-1.1cm) RV (D) 2.7 (1.8-2.4cm) PWd 1.0 (0.7-1.1cm) Mitral Valve Mitral Mitral Stenosis E wave 0.54m/s MV Mean GR. mmHg A wave 1.06m/s MV Peak GR. mmHg E/A ratio 0.5 2D MVA cm2 DECEL Time 193ms PRESS 1/2 Time ms Aortic Valve Aortic Valve Aortic Stenosis V1 1.16m/s AO Mean GR. 4mmHg V2 1.16m/s AO Peak GR. 5mmHg LVOT Diameter 1.6 (1.8-2.4cm) Doppler ERICH 2.01cm2 Pulmonic Valve V2 0.76m/s Tricuspid Valve TR Velocity 2.13m/s RVSP 22mmHg Conclusion LV EF IS 55% AND IS NORMAL DYSKINESIS OF IVS SLIGHTLY DILATED RV REPRESENT RV STRAIN PATTERN NORMAL VALVES NO EFFUSION Condition at Discharge: Guarded Final Diagnosis/Problems List # Chest pain likely non cardiac due to GERD # Ruled out ACS # Left arm pain most likely due to nerve entrapment at C3 and C4 # Hypertensive heart disease # Dyslipidemia # Acute complicated UTI # Chronic arthritis Discharge Disposition: Home Discharge Instruct/Medications Diet: Cardiac 2g Na,low cholest Activity: No Restrictions, As Tolerated Follow Up/Referral: Follow up with [place] [facility] in 1 week. Medications: As per EMR Scheduled Atorvastatin Calcium (Atorvastatin Calcium), 1 TAB PO QPM Cephalexin (Keflex Capsule), 250 MG PO Q6HR Famotidine (Pepcid Tablet), 1 TAB PO BID Gabapentin (Gabapentin), 1 CAP PO TID Lisinopril (Lisinopril), 10 MG PO DAILY Discharge Statement: "Patient was advised to return to the ER or call 911 if any headaches, dizziness, shortness of breath, chest pain, abdominal pain, bleeding, fevers, or worsening of medical condition. Patient was counseled about treatment plan, medications, possible side effects, patientverbalized understanding. All questions were answered to the best of my ability. This discharge took greater then 30 minutes in planning, reviewing documentation, counseling the patient, and discussing with other team members." ASSESSMENT ASSESSMENT Assessment Chest pain ruled out ACS Date of Service: Feb 13, 2025 Billing Provider: JOEY MCKAY MD Common Visit Codes: [id number] DISCH DAY >30min CHINEDU MURILLO RESIDENT Feb 13, 2025 15:18 JOEY MCKAY MD Feb 15, 2025 13:46
== END 2025-02-13 15:50 | disposition home or self-care (01) | DRG 74 ==
LOC: ER 10:19 → OVERFLOW 12:43 → TELE-WESTW 22:34
DX: G58.8 Other specified mononeuropathies (principal); N39.0 Urinary tract infection, site not specified; E78.00 Pure hypercholesterolemia, unspecified; M19.09 Primary osteoarthritis, other specified site; I11.9 Hypertensive heart disease without heart failure; Z82.49 Family history of ischemic heart disease and other diseases of the circulatory system; Z80.8 Family history of malignant neoplasm of other organs or systems; Z88.5 Allergy status to narcotic agent; Z79.899 Other long term (current) drug therapy; K21.9 Gastro-esophageal reflux disease without esophagitis
CPT/HCPCS: 36415; 71045; 72125; 80048; 80053; 80061; 80307; 81001; 83036; 83735; 83880; 84439; 84443; 84484; 85025; 85379; 93005; 93306; 96374; G0378; J3490